=== PATIENT | male | born 1955 | race Caucasian/White ===

== ENCOUNTER 2024-06-08 19:59 | Emergency (ER) | payer OTHER, SELFPAY ==
[2024-06-08 20:02] VITALS: BP 145/68
[2024-06-08 22:55] VITALS: BMI 30.4
[2024-06-08 23:00] VITALS: BP 130/73
[2024-06-08] MEDS: DUONEB 3 ML INH (23:09)
[2024-06-08 23:15] LABS: % Basophils 0.4 % (0-2); % Eosinophils 1.1 % (0-6); % Immature Granulocytes 0.7 % (0-0.5); % Lymphocytes 24.2 % (20.5-51.1); % Monocytes 10.6 % (1.7-9.3); Absolute Eosinophils 0.1 10^3/uL (0-0.7); Absolute Immature Granulocytes 0.1 10^3/uL (0-0.05); Absolute Lymphocytes 2.2 10^3/uL (1.2-3.4); Absolute Neutrophils 5.8 10^3/uL (1.4-6.5); Hematocrit 45.8 % (39.0-52.0); Hemoglobin 15.3 g/dL (13.0-18.0); Mean Corp Hgb Conc. 33.4 g/dL (33.0-37.0); Mean Corpuscular Hgb 28.2 pg (27.0-31.0); Mean Corpuscular Volume 84.3 fL (80.0-94.0); Mean Platelet Volume 12.1 fL (7.4-10.4); Nucleated Red Blood Cells % 0 % (-); Platelet Count 270 10^3/uL (130-400); Red Blood Cell Count 5.43 10^6/uL (4.70-6.10); Red Cell Dist. Width 13.2 % (11.5-14.5); White Blood Cell Count 9.2 10^3/uL (4.8-10.8)
--- NOTE | 2024-06-08 23:21 | ED.GENMED ---
History of Present Illness
General
Chief Complaint: Cough
Source: patient and spouse
Exam Limitations: none
Time Seen by Provider: 06/08/24 22:14
Nursing documentation reviewed up to this point in time: agreed with except (Patient complains of cough for the past 3 to 4 weeks, not months)
History of Present Illness
History of Present Illness:
This is a 69-year-old gentleman who has remote history of DVT right lower extremity 7 years ago, has been maintained on Xarelto since that time, has been compliant with daily dosing. He has history of BPH, hyperlipidemia, factor V Leyden deficiency.
He presents with 3 to 4-week history of cough, URI with fever with Tmax of 1 1.2 �F. Initially evaluated by his PCP 3 weeks ago, initially treated with a cough suppressant without relief, returned to his PCP and was initially prescribed amoxicillin
and with no improvement after near completion of amoxicillin he was placed on a 5-day course of Levaquin 750 mg daily for which she has completed 4 of 5 days.
He states COVID and flu testing have been negative. An outpatient chest x-ray 3 days ago was negative.
Cough has been productive of phlegm, phlegm production has resolved, fever improving but has not completely resolved.
He is concerned with continued hacking cough with anterior substernal chest pain with coughing as well as back pain with cough. He is also concerned with an ache and sense of swelling right lower extremity over the past few days.
He has had no dizziness nor lightheadedness, no palpitations. He has has had some shortness of breath with coughing but denies dyspnea on exertion.
No close contacts with similar symptoms, no recent travel. No history of similar episode in the past. No history of lung disease/asthma/CHF.
Past History
Past History
ED Past Medical History: Hypercholesterolemia, Other (DVT right lower extremity 7 years ago-chronically maintained on Xarelto) and Other (Liver disease, factor V Leiden, kidney stones; BPH)
ED Past Surgical History: Appendectomy and Orthopedic (Bilateral total knee replacements most recently left knee replacement January 2024; bilateral rotator cuff repair)
Social History
Tobacco: Non-smoker
Alcohol: None
Personal:
Living: with family
Employment: Retired
Family History
Family History: Other (Noncontributory)
Phy Exam
Physical Exam
Physical Exam:
GENERAL: 69-year-old gentleman appears his stated age, awake and alert, pleasant, appears in no acute distress. Intermittent dry hacking cough is noted. Afebrile. is accompanying.
EYE: anicteric
NECK: Supple, nontender, no meningismus, no significant adenopathy. No JVD.
ENT: posterior pharynx is clear, oral mucosa is moist. TM clear b/l, nares patent.
CARDIAC: Regular rate and rhythm. no murmur.
LUNGS: Clear breath sounds bilaterally, no acute respiratory distress, no wheezes/rales/rhonchi
ABDOMEN: Soft, nondistended, without focal tenderness, no r/g, no cvat. normoactive BS.
NEUROLOGICAL: Alert and oriented x3, no focal neuro deficits. Gait is steady.
SKIN: Warm and dry, normal color, skin intact. No rash.
MUSCULOSKELETAL: Knee-high compression stockings in place. No C/C/E. peripheral pulses are full and equal b/l. No palpable tenderness. No appreciable edema bilateral lower extremities. No calf tenderness. No palpable cords. Negative Homans'
sign.
PSYCH: Normal and appropriate interaction.
Course
Orders/Labs/Results
Orders:
Orders
06/08/24 20:05
EKG [Electrocardiogram (*1)] Urgent
Reason for Study: Shortness of Breath
EKG- Treatment ONCE
06/08/24 22:51
Ipratropium/Albuterol Sulfate [Duoneb] 3 ml INH R NOW STA
06/08/24 23:05
Complete Blood Count/With Diff Urgent
Comprehensive Metabolic Panel Urgent
DDimer [D-Dimer] Urgent
NT-proBNP Urgent
Troponin I Urgent
06/08/24 23:29
CT Chest PE Study Urgent
Comment:
Reason For Exam: cough x 3 weeks, CP, elevated ddimer
06/09/24 01:05
Dexamethasone Sod Phosphate [Decadron] 10 mg IV NOW STA
Guaifenesin/Codeine Solution [Robitussin AC] 10 ml PO NOW STA
Ketorolac [Toradol] 15 mg IV NOW STA
Abnormal Lab Results
06/08/24
23:05
MPV 12.1 H fL
(7.4-10.4)
Abs Immat Gran (auto) 0.1 H 10^3/uL
(0-0.05)
Absolute Monos (auto) 1.0 H 10^3/uL
(0.1-0.6)
Immature Gran % 0.7 H %
(0-0.5)
Monocytes % 10.6 H %
(1.7-9.3)
D-Dimer 1.22 H ug/mlFEU
(0.00-0.50)
Glucose 105 H mg/dl
(70-99)
Calcium 10.7 H mg/dl
(8.4-10.2)
AST 70 H U/L
(17-59)
ALT 97 H U/L
(0-50)
Alkaline Phosphatase 174 H U/L
(38-126)
Total Protein 5.9 L g/dl
(6.3-8.2)
Albumin 3.3 L g/dl
(3.5-5.0)
06/08/24 23:05
06/08/24 23:05
Vital Signs
Initial and Last Documented VS:
Initial Vital Signs
Temp Pulse Resp BP Pulse Ox
98.5 F 69 16 145/68 98
06/08/24 20:02 06/08/24 20:02 06/08/24 20:02 06/08/24 20:02 06/08/24 20:02
Last Documented Vital Signs
Temp Pulse Resp BP Pulse Ox
98.5 F 91 18 121/87 98
06/08/24 20:02 06/09/24 00:12 06/09/24 00:12 06/09/24 00:12 06/09/24 00:12
MDM/Problems Addressed
Differential Diagnosis Includes:
Concern for acute bronchitis with reactive airway disease, CHF, concern for occult pneumonia, other consideration is PE however reassuring that patient has been compliant with Xarelto.
Will check labs including BNP, D-dimer.
EKG shows normal sinus rhythm with unifocal PVCs, otherwise unremarkable.
If D-dimer elevated will plan for CT of the chest/PE study
Will trial DuoNeb nebulizer for cough.
Chronic conditions affecting care: Other (Factor V Leyden deficiency)
*Radiology
Radiology exam reviewed: radiology read reviewed
*Pulse Oximetry
Patient hypoxic: no
*Critical Care Note
Total Time (30-74mins, 75-104mins- exclusive of procedures): Not Applicable
Update Note
Update Note:
01:10
Patient reports improvement in cough after nebulizer treatment. He continues with moderate back pain with coughing.
Labs reveal unremarkable CBC. Chemistries show mildly elevated LFTs. Patient notes a history of elevated LFTs, history of liver fibrosis without cirrhosis.
Troponin is negative. BNP is normal.
D-dimer mildly elevated thus CT of the chest/PE study obtained which is unremarkable no evidence of PE nor aortic pathology. No pneumonia nor CHF. Patent airways. There is note of moderate gastric wall/fold thickening along the posterior
wall�consideration for gastritis. Patient denies abdominal pain but is chronically maintained on omeprazole 20 mg daily.
I suspect a viral URI/bronchitis with wheezing/reactive airway disease.
Back pain with coughing appears musculoskeletal in nature.
Will treat with a course of prednisone, albuterol inhaler, Robitussin with codeine. Due to concern for gastritis on CAT scan will increase dose of omeprazole to 40 mg daily.
Recommend he finish his course of Levaquin�has 1 more dose for today June 1.
Prompt follow-up with PCP for recheck.
ED Attending Note
-
Portions of this chart may have been created with voice recognition software.� Occasional wrong word or��sound alike� substitutions may have occurred due to the inherent limitations of voice recognition software.
Discharge Plan
Departure
Patient Disposition: Home (Routine Discharge)
Date of Disposition: 06/09/24
Time of Disposition: 01:09
Patient with high blood pressure during this ER visit?: No
Condition: Good
Discharge Problem:
Acute asthmatic bronchitis
Instructions: Acute Bronchitis, Adult (DC), How to use a metered dose inhaler in adults - ED discharge instructions
Prescriptions:
New
prednisone 20 mg tablet
40 mg PO DAILY Qty: 10 0RF
omeprazole 40 mg capsule,delayed release(DR/EC)
40 mg PO DAILY Qty: 30 1RF
codeine-guaifenesin [Guaifenesin AC] 10-100 mg/5 mL liquid
10 ml PO QIDPRN PRN (Reason: Cough) Qty: 200 0RF
albuterol sulfate 90 mcg/actuation aerosol powdr breath activated
2 inh inhalation QIDPRN PRN (Reason: shortness of breath or cough) Qty: 1 0RF
Discontinued
diclofenac potassium 50 mg tablet
50 mg PO BID PRN (Reason: pain) Qty: 14 0RF
ondansetron 4 mg Tablet,Disintegrating
4 mg PO BIDPRN PRN (Reason: nausea/vomiting) Qty: 10 0RF
oxycodone 5 mg tablet
5 mg PO Q8H PRN (Reason: pain) Qty: 14 0RF
Referrals:
UNKNOWN - PT NOT,INTERVIEWE [Family Provider] -
Activity Restrictions/Additional Instructions:
Finish that last dose of Levaquin.
Stay well-hydrated on a daily basis.
Use humidifier or vaporizer at nighttime.
Follow-up with your primary care physician for recheck.
Interventions
Interventions:
*Risk Screen - Suicide Last Done: 06/08/24 20:02
*General Assessment Last Done: 06/08/24 22:56
*Neglect/Abuse Screening Last Done: 06/08/24 20:02
*ED- Fall Risk Assessment Last Done: 06/08/24 22:56
*ED COVID-19 Vaccine History Last Done: 06/08/24 22:56
ED- Neurological Assessment Last Done: 06/08/24 23:01
ED- Pulmonary Assessment Last Done: 06/08/24 23:01
ED-Skin Assessment Last Done: 06/08/24 23:01
Discharge Date and Time
Print Language: SWAZI
[2024-06-08 23:22] LABS: D-Dimer 1.22 ug/mlFEU (0.00-0.50)
[2024-06-08 23:39] LABS: NT-proBNP 244 pg/ml; Troponin I < 0.012 ng/ml
[2024-06-08 23:45] LABS: ALT (SGPT) 97 U/L (0-50); AST (SGOT) 70 U/L (17-59); Albumin 3.3 g/dl (3.5-5.0); Alkaline Phosphatase 174 U/L (38-126); Blood Urea Nitrogen 12 mg/dl (9-20); Calcium 10.7 mg/dl (8.4-10.2); Carbon Dioxide 27 mmol/L (22-30); Chloride 105 mmol/L (98-107); Estimated Creatinine Clearance 90 ml/min; Glucose 105 mg/dl (70-99); Potassium 4.6 mmol/L (3.5-5.1); Sodium 139 mmol/L (135-145); Total Bilirubin 0.9 mg/dl (0.2-1.3); Total Protein 5.9 g/dl (6.3-8.2); eGFR > 60.00
[2024-06-09 00:12] VITALS: BP 121/87
[2024-06-09] MEDS: TORADOL 15 MG IV (01:13)
[2024-06-09] MEDS: DECADRON 10 MG IV (01:14)
[2024-06-09] MEDS: ROBITUSSIN AC 10 ML PO (01:15)
[2024-06-09 01:23] VITALS: BP 132/82
== END 2024-06-09 01:37 | disposition home or self-care (01) ==
LOC: EMR 19:59
PROVIDERS: EMERGENCY PHYSICIAN Emergency Medicine
DX: J45.909 Unspecified asthma, uncomplicated (principal); N40.0 Benign prostatic hyperplasia without lower urinary tract symptoms; E78.00 Pure hypercholesterolemia, unspecified; D68.51 Activated protein C resistance; Z79.01 Long term (current) use of anticoagulants; Z86.718 Personal history of other venous thrombosis and embolism; Z87.442 Personal history of urinary calculi; Z90.49 Acquired absence of other specified parts of digestive tract; Z96.653 Presence of artificial knee joint, bilateral
CPT/HCPCS: 99284; 94640; 96374; 96375; 71275; 80053; 83880; 84484; 85025; 85379; 93005; Q9967

== ENCOUNTER 2025-01-14 20:02 | Inpatient (IN) | payer OTHER, SELFPAY ==
[2025-01-14] VITALS (8 sets, daily range): BP systolic 117–135; BP diastolic 50–86; BMI 30.2
--- NOTE | 2025-01-14 14:50 | ED.GENMED ---
History of Present Illness
General
Chief Complaint: Cold/Flu/URI Symptoms
Time Seen by Provider: 01/14/25 14:10
History of Present Illness
History of Present Illness:
69-year-old male with history of GERD and DVT on Xarelto per for fever and generally feeling unwell. Patient reports fever since yesterday. Notes that he felt unwell about a week ago with fever, however resolved. Also at the time was having some
right calf pain. Since last night has had fever and cough and his right lower extremity is now erythematous. Reports compliance with his medications. Denies numbness or tingling. Denies vomiting or diarrhea. Denies known sick contacts. Denies
abdominal pain. Son at bedside felt the patient was slightly more confused today. Patient denies additional acute medical complaints
Past History
Past History
ED Past Medical History: Hypercholesterolemia, Other (DVT right lower extremity 7 years ago-chronically maintained on Xarelto) and Other (Liver disease, factor V Leiden, kidney stones; BPH)
ED Past Surgical History: Appendectomy and Orthopedic (Bilateral total knee replacements most recently left knee replacement January 2024; bilateral rotator cuff repair)
Social History
Tobacco: Non-smoker
Alcohol: None
Personal:
Living: with family
Employment: Retired
Family History
Family History: Other (Noncontributory)
Phy Exam
Physical Exam
Physical Exam:
General: Well-appearing, no clinical signs of dehydration, nontoxic and in no acute distress
HEENT: protecting airway
Neck: appears supple
CV: Normal heart rate, regular rhythm
Resp: No accessory muscle use, no increased work of breathing, lungs clear to auscultation bilaterally
Abd: Soft and non-distended, no tenderness to palpation
Extremities: No deformities, mild swelling to the right lower extremity versus left lower extremity distal to the knee. Erythema. Pulses and sensation intact
Neuro: alert, no focal neurologic deficit
: deferred
Rectal: deferred
Psych: Normal affect
Skin: Intact
Sepsis
Sepsis Screening
Sepsis Assessment: Sepsis
Sepsis Screen
Sepsis Screen: Sepsis
Date: 01/14/25
Time: 23:30
Course
Orders/Labs/Results
Orders:
Orders
01/14/25 Breakfast
Cholesterol Lowering
At Your Request: Full Participation
01/14/25 14:36
0.9% Sodium Chloride 1000 ml [Nss] 1,000 ml IV BOLUS
US Periph Venous LOWER Ext RT Urgent
Comment:
Reason For Exam: hx dvt, redness, fever
01/14/25 14:44
COVID-19 Antigen Urgent
Source: Nasal Swab
Complete Blood Count/With Diff Urgent
Comprehensive Metabolic Panel Urgent
Lactic Acid Urgent
Influenza A+B Rapid Molecular Urgent
JO ANN Source: Nasal Swab
Specimen Description:
01/14/25 14:57
Urinalysis Reflex To Culture Urgent
Date Specimen was Collected: 01/14/25
Time Specimen was Collected: 14:56
Urine Microscopic Reflex Cult Urgent
01/14/25 15:34
CR Chest - 2 Views Urgent
Comment:
Reason For Exam: cough
01/14/25 19:10
Vancomycin [Vancocin] 2,000 mg 0.9% Sodium Chloride 500 ml [Nss] 500 ml IV NOW
01/14/25 19:30
0.9% Sodium Chloride 1000 ml [Nss] 1,000 ml IV BOLUS
Acetaminophen [Tylenol] 1,000 mg PO NOW STA
01/14/25 19:38
Admit/Transfer Patient As Directed
Co-Sign Provider:
Level of Care: Inpatient admission
Assign to:: Medical/Surgical
Physician / Group: Jacklyn
Diagnosis: Sepsis, Cellulitis
Reason for Hospitalization: IV abx
Expected length of stay greater than two midnights?: Yes
ELOS- Estimated Length of Stay in days: 3
I certify the patient meets the requirements for IP care: Yes
PRN Pain Medication Management As Directed
May give lesser potent ordered pain med per pt: Yes
preference::
Protocol:: Medication orders for pain may be administered in a
manner that supports deferring to patient preference
when the pt is:
- Requesting an ordered lesser potent pain medication.
Least to most potent pain medications are defined
as: acetaminophen < NSAID < tramadol < opioids
(morphine, oxycodone, hydromorphone).
- Requesting a lesser dose of the same medication IF
ORDERED.
- Requesting a less intrusive route of administration
if both routes are prescribed by the provider (PO <
IV).
01/14/25 19:41
Code Status As Directed
Resuscitation Status: Full Code
01/14/25 20:28
0.9% Sodium Chloride 1000 ml [Nss] 1,000 ml IV 100 mls/hr
Acetaminophen [Tylenol] 650 mg PO Q4HPRN PRN
CeFAZolin 2 GRAM [Ancef] 2 grams in 10 ml IV Q8H
Miconazole Nitrate [Desenex/Mitrazol/Zeasorb] See Dose Instructions TOPICAL BID
Tamsulosin [Flomax] 0.4 mg PO BID
01/14/25 20:28
Activity As Directed
Activity Level: Out of Bed-Early Mobility
With Assistance
Vital Signs As Directed
Frequency: q4h
01/14/25 20:44
MRSA Screen Routine
JO ANN Source: Nose
Specimen Description:
01/14/25 21:11
Blood Culture Q30M
JO ANN Source: Blood/Venous
Specimen Description:
01/14/25 21:51
Blood Culture Q30M
JO ANN Source: Blood/Venous
Specimen Description:
01/15/25 06:00
Complete Blood Count/No Diff IN AM
Comprehensive Metabolic Panel IN AM
01/15/25 08:00
Pantoprazole [Protonix] 40 mg PO DAILY
Rivaroxaban [Xarelto] 20 mg PO DAILY
01/16/25 08:00
Ergocalciferol [Drisdol (Vitamin D2)] DOSE units PO MO
Abnormal Lab Results
01/14/25 01/14/25
14:44 14:57
WBC 22.6 H 10^3/uL
(4.8-10.8)
MPV 11.0 H fL
(7.4-10.4)
Abs Immat Gran (auto) 0.2 H 10^3/uL
(0-0.05)
Absolute Neuts (auto) 18.9 H 10^3/uL
(1.4-6.5)
Absolute Monos (auto) 1.2 H 10^3/uL
(0.1-0.6)
Absolute Eos (auto) 0.8 H 10^3/uL
(0-0.7)
Immature Gran % 0.7 H %
(0-0.5)
Neutrophils % 83.9 H %
(42.2-75.2)
Lymphocytes % 6.2 L %
(20.5-51.1)
Sodium 132 L mmol/L
(135-145)
Total Bilirubin 2.1 H mg/dl
(0.2-1.3)
Urine Urobilinogen 2+ A
(Neg - 1+)
Urine Bacteria (Reflex) Few A
(Negative)
Urine Albumin (Reflex) 1+ A
(Neg - Trace)
01/14/25 14:44
01/14/25 14:44
Vital Signs
Initial and Last Documented VS:
Initial Vital Signs
Temp Pulse Resp BP Pulse Ox
99.3 F 78 22 120/72 98
01/14/25 13:45 01/14/25 13:45 01/14/25 13:45 01/14/25 13:45 01/14/25 13:45
Last Documented Vital Signs
Temp Pulse Resp BP Pulse Ox
99.4 F 106 16 126/76 99
01/14/25 20:38 01/14/25 20:38 01/14/25 20:38 01/14/25 20:38 01/14/25 20:38
MDM/Problems Addressed
MDM/Problems Addressed:
69-year-old male with history of GERD and DVT on Xarelto presenting for fever, cough, right lower extremity redness. Vital signs on arrival are significant for low-grade temperature.
On exam, patient resting comfortably, no acute distress. Patient appears somewhat flushed, however nontoxic. Notes that he took Tylenol prior to arrival. Currently afebrile. However, significant erythema to the right lower extremity with edema
today versus cellulitis. Suspected to be more likely cellulitis with fever and infectious symptoms. Viral syndrome such as flu or COVID is also consideration. Will send swabs. Will also send laboratory analysis. Will start patient on IV fluids.
Will also obtain chest x-ray imaging in the setting of cough. Will continue to closely monitor.
17:00 - Labs do show elevated white blood cell count. Chest x-ray without acute infiltrate. COVID and flu negative. Normal lactic acid and blood pressure remained stable without concern for severe sepsis or septic shock. Pending ultrasound of
the lower extremity
18:55 - Ultrasound without DVT. In the setting of fever, significant erythema, concern for cellulitis and developing sepsis. For this reason we will start IV antibiotics plan for admission
*Pulse Oximetry
SaO2: 98
Oxygen Mode of Delivery: Room air
Patient hypoxic: no
*Critical Care Note
Total Time (30-74mins, 75-104mins- exclusive of procedures): Not Applicable
ED Attending Note
-
Portions of this chart may have been created with voice recognition software.� Occasional wrong word or��sound alike� substitutions may have occurred due to the inherent limitations of voice recognition software.
Discharge Plan
Departure
Patient Disposition: Admit
Date of Disposition: 01/14/25
Time of Disposition: 19:24
Presentation/result/management discussed w/ accepting MD/DO: Hospitalist
Patient with high blood pressure during this ER visit?: No
Condition: Fair
Discharge Problem:
Cellulitis of right leg, Sepsis
Interventions
Interventions:
*Risk Screen - Suicide Last Done: 01/14/25 13:45
*General Assessment Last Done: 01/14/25 13:45
*Neglect/Abuse Screening Last Done: 01/14/25 13:45
*ED COVID-19 Vaccine History Last Done: 01/14/25 16:16
*ED Influenza Vaccine History Last Done: 01/14/25 16:16
[facility] Fall Risk Assessment Tool Last Done: 01/14/25 16:16
*Nursing Disposition Last Done: 01/14/25 20:29
ED- Pulmonary Assessment Last Done: 01/14/25 16:16
Discharge Date and Time
Discharge Date/Time: 01/14/25 20:29
[2025-01-14] MEDS: NSS 1000 IV ×3 (14:55→21:30)
[2025-01-14 15:11] LABS: Urine Character Clear (Clear)
[2025-01-14 15:12] LABS: Hematocrit 47.9 % (39.0-52.0); Hemoglobin 16.5 g/dL (13.0-18.0); Mean Corp Hgb Conc. 34.4 g/dL (33.0-37.0); Mean Corpuscular Volume 83.7 fL (80.0-94.0); Platelet Count 177 10^3/uL (130-400); Red Cell Dist. Width 14.1 % (11.5-14.5)
[2025-01-14 15:22] LABS: COVID-19 Antigen Negative (Negative)
[2025-01-14 15:28] LABS: ALT (SGPT) 34 U/L (0-50); AST (SGOT) 36 U/L (17-59); Albumin 3.8 g/dl (3.5-5.0); Alkaline Phosphatase 90 U/L (38-126); Blood Urea Nitrogen 12 mg/dl (9-20); Calcium 9.6 mg/dl (8.4-10.2); Carbon Dioxide 22 mmol/L (22-30); Chloride 103 mmol/L (98-107); Glucose 97 mg/dl (70-99); Potassium 3.9 mmol/L (3.5-5.1); Sodium 132 mmol/L (135-145); Total Protein 6.4 g/dl (6.3-8.2); eGFR > 60.00
[2025-01-14 15:39] LABS: Nucleated Red Blood Cells % 0 % (-)
[2025-01-14 16:02] LABS: Urine Red Blood Cell 0-2 /HPF (0-2); Urine Squamous Cell 0-2 /LPF (Few); Urine White Cell 0-2 /HPF (0-5)
[2025-01-14] MEDS: VANCOCIN 540 MG IV (19:23)
--- NOTE | 2025-01-14 19:23 | HPS.HSE ---
Family Physician
-
Family Physician: Kai Waldron
Chief Complaint
-
Fever, RLE Swelling and Redness
History of Present Illness
Patients is a 69 y/o male past medical history of DVT due to Factor 5 Leiden on Xarelto, hyperlipidemia and BPH who presents with fever and increased redness/swelling of the right leg. Patient reports increasing swelling of the right leg over the
past few days. Last night he developed a fever of 104F associated with sweats and chills. He notes the redness in the leg has continue to worsen prompting him to come to the emergency department for evaluation. Patient reports his prior DVT was in
the right leg, but he denies any prior episodes of celluitis.
Medical History
Past Medical History
Past Medical History: Reports Other
Additional Past Medical History:
DVT / Factor 5 Leiden
Hyperlipidemia
BPH
Nephrolithiasis
Past Surgical History: Reports Other
Additional Past Surgical History:
Bilateral Total Knee Replacements
Bilateral Rotator Cuff
Appendectomy
Social History
Tobacco: Non-smoker
Family History
Family History: Not pertinent
Allergies / Home Medications
Allergies reflects when Allergies were last updated in [employer].
Home Medications with original date entered in [employer]
Allergy/Medication List:
Allergies
Allergy/AdvReac Type Severity Reaction Status Date / Time
No Known Allergies Allergy Verified 01/14/25 13:45
Home Medications
acetaminophen 325 mg tablet (Tylenol) 650 mg PO Q6HPRN PRN mild pain 01/14/25
ergocalciferol (vitamin D2) 1,250 mcg (50,000 unit) capsule 1,250 mcg PO MO Supplement 01/14/25
evolocumab 140 mg/mL subcutaneous syringe (Repatha Syringe) 140 mg SC Q2W High Cholesterol 01/14/25
furosemide 40 mg tablet (Lasix) 40 mg PO DAILY Fluid Retention/Swelling 01/14/25
omeprazole 20 mg tablet,delayed release 20 mg PO DAILY Gastrointestinal Issue 01/14/25
rivaroxaban 20 mg tablet (Xarelto) 20 mg PO DAILY Blood Clot Prevention/Tx 01/14/25
tamsulosin 0.4 mg capsule 0.4 mg PO BID Urinary Issue 01/14/25
Review of Systems
-
A 12 point ROS was completed and negative except as noted: Yes
Constitutional: Reports Fever and Chills
Respiratory: Reports Cough
Cardiac: Denies Chest Pain or Palpitations
Abdomen/GI: Denies Abdominal Pain, Nausea, Vomiting or Diarrhea
Physical Exam
Vital Signs
Vital Signs
Temp Pulse Resp BP Pulse Ox
100.4 F H 98 16 135/86 97
01/14/25 19:21 01/14/25 19:21 01/14/25 19:21 01/14/25 19:21 01/14/25 19:21
Physical Exam
General: Comfortable and Conversant
HEENT: Anicteric and Moist mucous membranes
Respiratory: Clear and Non Labored Respirations
Cardiac: S1/S2 and Regular Rhythm
GI: Soft and Non Tender
Rectal: Deferred by Provider
Musculoskeletal: No Clubbing, No Cyanosis and Edema, Right Lower Extremity
Skin: Other (Significant erythema of RLE extremity extending from ankle to just below the knee; notable areas of interdigit maceration particularly between right 3rd/4th toes)
Neuro: Awake, Alert, Oriented and Nonfocal/grossly intact
Psych: Calm
Laboratory Results
-
01/14/25 14:44
01/14/25 14:44
Laboratory Results
Lactic Acid 1.1 mmol/L (0.7-2.0) 01/14/25 14:44
Total Bilirubin 2.1 mg/dl (0.2-1.3) H 01/14/25 14:44
AST 36 U/L (17-59) 01/14/25 14:44
ALT 34 U/L (0-50) 01/14/25 14:44
Alkaline Phosphatase 90 U/L (38-126) 01/14/25 14:44
Peripheral Vascular Ultrasound:
No evidence of deep venous thrombosis in the visualized right lower extremity as described above.
Data Reviewed
-
Lab Data: Labs Reviewed by me
Impression/Plan
-
Sepsis secondary to Right Lower Extremity Cellulitis with Hyperbilirubinemia (Bilirubin 2.1)
-Patient with systemic signs of infection with high fever, sweats/chills /rigors - Check blood cultures
-Start cefazolin
-Add miconazole powder for interdigit maceration
Hx DVT / Factor 5 Leiden
-Continue Xarelto
-Patient reports chronic RLE edema for which he takes Lasix as home - Will home for now due to sepsis
BPH
-Continue Flomax
Hyperlipidemia
-Patient maintained on Repatha as outpatient
Code Status: Full Code
--- NOTE | 2025-01-14 20:00 | W.PN.UPDATE ---
Update Note
Progress Note Update
Patient seen in conjunction with physician assistant teacher, I agree with her findings and physical. Medical weight assessment and plan unless otherwise stated.
Briefly, he states he is 69-year-old with past medical history significant for lower extremity DVT on anticoagulation with Xarelto, history of factor V Leiden, residual right lower extremity edema presenting to the emergency department with about 2
days of redness and swelling in the right lower extremity. X-ray with some tenderness. However over the last 24 hours patient has been having fevers and chills at home. Per spouse report increasing redness and spreading of the redness from the
ankle to just below the knee. Spouse indicated possibility of an insect bite. Patient is not diabetic. He has no recent antibiotic use. He has no recent hospitalization.
On arrival in the emergency department he had taken Tylenol at home, his temperature remains elevated at 100.4, blood pressure 135/86, pulse was 91 and oxygen saturation of 97%. He had an ultrasound of the lower extremity which was negative for a
DVT. His chest x-ray was clear. COVID test was negative. He has a white count of 22.6 otherwise hemogram platelets were normal. Electrolytes BUN/creatinine were in the normal range. LFTs notable for bilirubin of 2.1, UA was unremarkable.
Lactic acid was normal
Impression
69-year-old with history of DVT and factor V Leiden presenting to the emergency department with cellulitis to the right lower extremity no apparent lymphangitic spread but does have systemic findings with fever and leukocytosis. Plan
Sepsis with elevated bilirubin secondary to cellulitis
- Admit to [facility]
- Patient without risk factors for MRSA or Pseudomonas or resistant bug,
�Obtain blood cultures
� MRSA swab
�Vancomycin in ED, will continue with cefazolin for now, will broaden if persistently febrile or shows decompensation
�Serial examinations
History of DVT
� Continue rivaroxaban
BPH
� Continue tamsulosin
DVT prophylaxis�on rivaroxaban
CODE STATUS�full code
[2025-01-14] MEDS: TYLENOL 1000 MG PO (20:11)
--- NOTE | 2025-01-14 20:28 | PTCARENOTE ---
Pt received from ED to [id number]. Pt oriented to room and call avalos.
[2025-01-14] MEDS: DESENEX/MITRAZOL/ZEASORB 1 APPLIC TOPICAL (21:10)
[2025-01-14] MEDS: FLOMAX PO (21:14)
--- NOTE | 2025-01-14 21:18 | PTCARENOTE ---
Pt with orders for BC x 2 in admit orders. Vancomycin infusion already started in ED. House DAYCARE TEACHER made aware. FEATHER CUTTING MACHINE FEEDER states she will ask ordering PA if BC's still to be drawn. Per FEATHER CUTTING MACHINE FEEDER, BC's should be drawn. 1st set drawn and sent. 2nd set to be drawn 30
minutes later.
[2025-01-14] MEDS: ANCEF 10 IV (21:57)
[2025-01-15 02:54] VITALS: BP 138/73
[2025-01-15] MEDS: ANCEF 10 IV ×3 (05:00→19:39)
[2025-01-15 07:00] VITALS: BP 138/72
[2025-01-15 07:32] LABS: Hematocrit 46.7 % (39.0-52.0); Hemoglobin 15.9 g/dL (13.0-18.0); Mean Corp Hgb Conc. 34.0 g/dL (33.0-37.0); Mean Corpuscular Volume 84.9 fL (80.0-94.0); Platelet Count 149 10^3/uL (130-400); Red Cell Dist. Width 14.5 % (11.5-14.5)
[2025-01-15 07:55] LABS: ALT (SGPT) 27 U/L (0-50); AST (SGOT) 23 U/L (17-59); Albumin 3.1 g/dl (3.5-5.0); Alkaline Phosphatase 91 U/L (38-126); Blood Urea Nitrogen 10 mg/dl (9-20); Calcium 9.2 mg/dl (8.4-10.2); Carbon Dioxide 22 mmol/L (22-30); Chloride 107 mmol/L (98-107); Estimated Creatinine Clearance 98 ml/min; Glucose 77 mg/dl (70-99); Potassium 3.9 mmol/L (3.5-5.1); Sodium 134 mmol/L (135-145); Total Protein 5.5 g/dl (6.3-8.2); eGFR > 60.00
[2025-01-15] MEDS: XARELTO 20 MG PO (08:11)
[2025-01-15] MEDS: FLOMAX 0.4 MG PO ×2 (08:11→19:35)
[2025-01-15] MEDS: PROTONIX 40 MG PO (08:11)
[2025-01-15] MEDS: DESENEX/MITRAZOL/ZEASORB 1 APPLIC TOPICAL ×2 (08:12→19:38)
--- NOTE | 2025-01-15 09:45 | CM ---
Patient seen at bedside on . Patient stated that he lives with his girlfriend in a one story home. Patient stated that he has no DME. Patient PCP is Dr. Adamson and [facility] uses [facility] [place]. patient stated that he does not drive but is
independent of adl's. Patient plan is for discharge home with no needs. CM will continue to follow for discharge planning needs.
Plan; home with VN vs home with no needs; pending medical treatment plan
--- NOTE | 2025-01-15 09:50 | CM ---
Patient seen at bedside on . Patient states that he lives with his in a 2 story home. patient has no DME. Patient PCP is Dr. Crane and [facility] uses [facility] [place]. Patient is independent of ADL's and stated that he has had [facility] previously and would accept if needed. CM will continue to follow for discharge planning needs.
Plan; home with VN vs home with no needs pending medical treatment plan
[2025-01-15] MEDS: ULTRAM 50 MG PO (10:19)
--- NOTE | 2025-01-15 11:00 | W.PN.HOSP.TC ---
Today's Communication/Plan
-
Assessment / Plan
Assessment / Plan
General: No Apparent Distress, Comfortable and Conversant
HEENT: NormoCephalic, Moist mucous membranes, Atraumatic
Respiratory: Clear and Non Labored Respirations
Cardiac: S1/S2 and Regular Rhythm; No Rub or Gallop
GI: Soft, Non Tender, Non Distended and Normal Bowel Sounds
Musculoskeletal: No Edema, no deformity
Skin: Warm and dry, significant right lower extremity erythema originating from the ankle and spreading proximally with streaking left medial thigh to the groin, no drainage or open wounds
: NO Cheung
Neuro: Awake, Alert, Nonfocal/grossly intact
Psych: Calm and Intact Judgment/Insight
Mr. Coats is a 69-year-old male with a medical history of right lower extremity DVT due to factor V Leiden (on Xarelto), hyperlipidemia, and prostate enlargement who presented with painful redness and swelling in his right ankle spreading
proximally. This has been progressing over the past few days prior to arrival. He developed a fever at home and has been unable to bear weight on his right foot due to pain. He has been started on antibiotics and admitted for further evaluation
and management of cellulitis.
Sepsis secondary to right lower extremity cellulitis:
- Likely streptococcal considering streaking, no purulence or drainage
- Erythema marked at time of admission (01/14), appears to have expanded since admission with streaking up medial thigh to right groin which has now also been marked (01/15)
- Continuing antibiotics with Ancef for now, follow-up cultures
- Appreciate guidance from ID
- Pain control as needed
- Leukocytosis appears to be improving, very mild fever yesterday evening of 100.4 �F, will monitor
- No evidence of DVT on ultrasound
- Patient reports taking Lasix daily for right lower extremity swelling, holding for now
Hyperbilirubinemia:
- T. bili 2.1 on initial labs improved to 1.7 today
- Alk phos and transaminases within normal limits
- Will monitor
Factor V Leiden mutation:
- History of right lower extremity DVT
- Continue home Xarelto
- Right lower extremity Doppler this admission shows no evidence of DVT
DVT prophylaxis: Xarelto
CODE STATUS: Full code
Anticipated Discharge: > 48 hours
Subjective/Interval History
-
Date of Service: January 15, 2025
Patient was seen and examined at bedside this morning. Reports ongoing right lower extremity pain. Now with streaking up the medial aspect of his leg to his right groin.
Objective Data
-
Labs:
Laboratory Results
01/15/25
06:47
WBC 17.4 H
Hgb 15.9
Hct 46.7
Plt Count 149
Sodium 134 L
Potassium 3.9
Chloride 107
Carbon Dioxide 22
BUN 10
Creatinine 0.8
Glucose 77
Calcium 9.2
Total Bilirubin 1.7 H
AST 23
ALT 27
Alkaline Phosphatase 91
Vital Signs:
Vital Signs
Temp Pulse Resp BP Pulse Ox
98 F 52 17 138/72 97
01/15/25 07:00 01/15/25 07:00 01/15/25 07:00 01/15/25 07:00 01/15/25 08:00
I&O
01/14/25 01/15/25 01/16/25
06:59 06:59 06:59
Intake Total 1520 / 1520
Balance 1520 / 1520
Review of Systems
-
History Source: Patient
All other systems: Reviewed and negative
Skin: Reports Rash (Right leg redness originating from the ankle and spreading proximally, painful)
Physical Exam
-
General: No Apparent Distress
[2025-01-15] MEDS: VENTOLIN NEBULES 2.5 MG INH (11:12)
[2025-01-15] MEDS: MORPHINE SULFATE 2 MG IV (11:37)
--- NOTE | 2025-01-15 14:00 | CON.ID ---
Consultation
-
Date/Time Consultation Requested: 01/15/25 9:05
Date/Time Consultation Performed: 01/15/25 14:00
Requesting Provider: Dr Tran
Performing Provider: Dr Yuan
Reason for Consultation: RLE cellulitis w streaking
Chief Complaint / Past History
Chief Complaint
fever RLE swelling and redness
History of Present Illness
Mr Coats is a 69 year old male with hisotry of DVT due to factor V Leiden on xarel, who presented here yesterday for increasing swelling over the right leg over several days progressing to erythema and fever to 104 with sweats and chills. No
history of cellulitis
Since arrival here Tmax is 100.4, bp overall stable, wbc initially 23 otday 17, hgb 15.9, plt 149, L shift was present on arrival, na 132, cr initially 1.0 today 0.8, t bili 1.7, ast 23, alt 27, alk phos 91, ua no pyuria, covid ag negative, 01/14 Rt
LE venous us: no DVT, 01/14 CXR: no acute CP process, blood cultures x2 in progress, MRSA screen in progress, influenza PCR negative, patient initially had a dose of vancomycin then was switched to cefazolin 2 gm IV q8 hours, ID is consulted for
assistance with management.
Past History
Additional Past Medical History:
DVT / Factor 5 Leiden
Hyperlipidemia
BPH
Nephrolithiasis
Additional Past Surgical History:
Bilateral Total Knee Replacements
Bilateral Rotator Cuff
Appendectomy
Allergy History:
No Known Allergies Allergy (Verified 01/14/25 13:45)
Medications Reviewed: Yes
Social History
Tobacco: Non-Smoker
Alcohol: None
Personal:
Family History
Family History: Not Pertinent
Review of Systems
Review of Systems
A 12 point ROS was completed and negative except as noted: Yes
Constitutional: Reports Fever and Chills
Respiratory: Reports Cough
Cardiac: Denies Chest Pain or Palpitations
Abdomen/GI: Denies Abdominal Pain, Nausea, Vomiting or Diarrhea
Vital Signs
Temp Pulse Resp BP Pulse Ox
99.3 F 56 18 138/72 97
01/15/25 11:23 01/15/25 11:15 01/15/25 11:15 01/15/25 07:00 01/15/25 11:15
Physical Exam
Physical Exam
Constitutional: No Acute Distress
Cardiovascular: Regular Rate and S1/S2; Negative Murmur or Rub
Pulmonary: Clear and Symmetric; Negative Wheezes, Rales or Rhonchi
Gastrointestinal: Soft, Non Tender, Non Distended and Normal Bowel Sounds
Skin: Warm and Dry; Negative Rash or Jaundice
Lab / Diagnostic Study Results
01/15/25 06:47
01/15/25 06:47
Abs Immat Gran (auto) 0.2 10^3/uL (0-0.05) H 01/14/25 14:44
Absolute Neuts (auto) 18.9 10^3/uL (1.4-6.5) H 01/14/25 14:44
Absolute Lymphs (auto) 1.4 10^3/uL (1.2-3.4) 01/14/25 14:44
Absolute Monos (auto) 1.2 10^3/uL (0.1-0.6) H 01/14/25 14:44
Absolute Basos (auto) 0.1 10^3/uL (0-0.2) 01/14/25 14:44
Immature Gran % 0.7 % (0-0.5) H 01/14/25 14:44
Neutrophils % 83.9 % (42.2-75.2) H 01/14/25 14:44
Lymphocytes % 6.2 % (20.5-51.1) L 01/14/25 14:44
Monocytes % 5.3 % (1.7-9.3) 01/14/25 14:44
Eosinophils % 3.6 % (0-6) 01/14/25 14:44
Basophils % 0.3 % (0-2) 01/14/25 14:44
Lactic Acid 1.1 mmol/L (0.7-2.0) 01/14/25 14:44
Ur Squamous Epith Cells 0-2 /LPF (Few) 01/14/25 14:57
Microbiology Results
Micro:
01/14/25 21:51 Blood Culture - Pending
Blood/Venous
01/14/25 21:11 Blood Culture - Pending
Blood/Venous
01/14/25 20:44 MRSA Screen - Pending
Nose
01/14/25 14:44 Influenza Types A & B (KE) - Final
Nasal Swab Negative for Influenza A & B, NAAT
Negative results must be combined with clinical observations
and patient history.
Nucleic Acid Amplification test (NAAT)performed on the
[employer] platform.
Assessment / Plan
Nonpurulent cellulitis of the RLE
Tinea Pedis
- blood cultures x2 in progress
- continue cefazolin 2 gm IV q8 hours
- compression/elevation as tolerated
- interdigital miconazole
[2025-01-15 15:00] VITALS: BP 115/73
[2025-01-15 23:26] VITALS: BP 119/64
[2025-01-16] MEDS: ANCEF 10 IV ×3 (04:43→20:23)
[2025-01-16 07:30] VITALS: BP 104/59
[2025-01-16 07:39] LABS: Hematocrit 41.9 % (39.0-52.0); Hemoglobin 14.7 g/dL (13.0-18.0); Mean Corp Hgb Conc. 35.1 g/dL (33.0-37.0); Mean Corpuscular Volume 85.2 fL (80.0-94.0); Nucleated Red Blood Cells % 0 % (-); Platelet Count 165 10^3/uL (130-400); Red Cell Dist. Width 14.3 % (11.5-14.5)
[2025-01-16 08:05] LABS: ALT (SGPT) 16 U/L (0-50); AST (SGOT) 19 U/L (17-59); Albumin 2.9 g/dl (3.5-5.0); Alkaline Phosphatase 94 U/L (38-126); Blood Urea Nitrogen 8 mg/dl (9-20); Calcium 9.3 mg/dl (8.4-10.2); Carbon Dioxide 21 mmol/L (22-30); Chloride 106 mmol/L (98-107); Estimated Creatinine Clearance 112 ml/min; Glucose 87 mg/dl (70-99); Potassium 4.1 mmol/L (3.5-5.1); Sodium 133 mmol/L (135-145); Total Protein 5.2 g/dl (6.3-8.2); eGFR > 60.00
[2025-01-16] MEDS: FLOMAX 0.4 MG PO ×2 (09:00→20:23)
[2025-01-16] MEDS: PROTONIX 40 MG PO (09:00)
[2025-01-16] MEDS: XARELTO 20 MG PO (09:01)
[2025-01-16] MEDS: DESENEX/MITRAZOL/ZEASORB 1 APPLIC TOPICAL ×2 (09:02→20:20)
--- NOTE | 2025-01-16 09:35 | W.PN.ID1 ---
Date of Service
Date of Service: January 16, 2025
Today's Communication
- continue cefazolin 2 gm IV q8 hours
- compression/elevation as tolerated - encouraged patient to elevate the extremity as much as possible
- interdigital miconazole x 4 weeks
Assessment / Plan
Nonpurulent cellulitis of the RLE
Tinea Pedis
Leukocytosis resolved
- overall with improvement of erythema, warmth of the RLE
- blood cultures x2 in progress
- continue cefazolin 2 gm IV q8 hours
- compression/elevation as tolerated - encouraged patient to elevate the extremity as much as possible
- interdigital miconazole x 4 weeks
Chief Complaint
-: Cellulitis
Subjective / Review of Systems
afebrile
bp stable
no events overnight
Vital Signs / Physical Exam
Vital Signs
Vital Signs
Temp Pulse Resp BP Pulse Ox
98.4 F 102 16 104/59 97
01/16/25 07:30 01/16/25 07:30 01/16/25 07:30 01/16/25 07:30 01/16/25 07:30
Physical Exam
Constitutional: No Acute Distress
Cardiovascular: Regular Rate and S1/S2; Negative Murmur or Rub
Pulmonary: Clear and Symmetric; Negative Wheezes or Rales
Gastrointestinal: Soft, Non Tender, Non Distended and Normal Bowel Sounds
Skin: Warm, Dry and Rash (less erythema and warmth of the RLE, still operator helper, compression in place, was not elevated on my arrival); Negative Jaundice
Objective Data
Lab Data
Lab Results
01/16/25 06:23
01/16/25 06:23
Estimated Creat Clear 112 ml/min 01/16/25 06:23
Lactic Acid 1.1 mmol/L (0.7-2.0) 01/14/25 14:44
Total Bilirubin 0.8 mg/dl (0.2-1.3) 01/16/25 06:23
AST 19 U/L (17-59) 01/16/25 06:23
ALT 16 U/L (0-50) 01/16/25 06:23
Alkaline Phosphatase 94 U/L (38-126) 01/16/25 06:23
Most recent labs reviewed.
Micro Results:
01/14/25 20:44 MRSA Screen - Final
Nose No Methicillin Resistant Staphylococcus aureus isolated.
01/14/25 21:51 Blood Culture - Preliminary
Blood/Venous No Growth in 24 hours- Final report to follow
01/14/25 21:11 Blood Culture - Preliminary
Blood/Venous No Growth in 24 hours- Final report to follow
01/14/25 14:44 Influenza Types A & B (KE) - Final
Nasal Swab Negative for Influenza A & B, NAAT
Negative results must be combined with clinical observations
and patient history.
Nucleic Acid Amplification test (NAAT)performed on the
[email or web address] platform.
[2025-01-16] MEDS: DRISDOL (VITAMIN D2) 50000 UNITS PO (12:26)
--- NOTE | 2025-01-16 12:29 | W.PN.HOSP.TC ---
Today's Communication/Plan
-
continue cefazolin.
Assessment / Plan
Assessment / Plan
Impression:
Mr. Coats is a 69-year-old male with a medical history of right lower extremity DVT due to factor V Leiden (on Xarelto), hyperlipidemia, and prostate enlargement who presented with painful redness and swelling in his right ankle spreading
proximally. This has been progressing over the past few days prior to arrival. He developed a fever at home and has been unable to bear weight on his right foot due to pain. He has been started on antibiotics and admitted for further evaluation
and management of cellulitis.
Assessment/plan
Sepsis secondary to right lower extremity cellulitis:
- Likely streptococcal considering streaking, no purulence or drainage
- Erythema marked at time of admission (01/14), appears to have expanded since admission with streaking up medial thigh to right groin which has now also been marked (01/15)
- Continuing antibiotics with Ancef for now, follow-up cultures
- Appreciate guidance from ID
- Pain control as needed
- Leukocytosis appears to be improving, very mild fever yesterday evening of 100.4 �F, will monitor
- No evidence of DVT on ultrasound
- Patient reports taking Lasix daily for right lower extremity swelling, holding for now
Hyperbilirubinemia:
- T. bili 2.1 on initial labs improved to 1.7 today
- Alk phos and transaminases within normal limits
- Will monitor
Factor V Leiden mutation:
- History of right lower extremity DVT
- Continue home Xarelto
- Right lower extremity Doppler this admission shows no evidence of DVT
DVT prophylaxis: Xarelto
CODE STATUS: Full code
Diet: Regular diet
Disposition: continue cefazolin.
Total time spent on today's encounter was 51 minutes which included time spent in counseling the patient/family regarding diagnosis and treatment plan as listed above, goals of care, and symptom management. Case was discussed with nursing staff,
specialists, and care coordinators/case management. All labs and imaging personally reviewed by me. Remainder the time spent in detailed review of previous records, lab data, imaging, and other medical provider documentation.
Anticipated Discharge: > 48 hours
Subjective/Interval History
-
Date of Service: January 16, 2025
Patient seen and examined at bedside, still with right leg psin, denies any chest pain, still with coughing, no abdominal pain, no nausea, no vomiting, no diarrhea or constipation.
Objective Data
-
Labs:
Laboratory Results
01/16/25
06:23
WBC 10.8
Hgb 14.7
Hct 41.9
Plt Count 165
Sodium 133 L
Potassium 4.1
Chloride 106
Carbon Dioxide 21 L
BUN 8 L
Creatinine 0.7
Glucose 87
Calcium 9.3
Total Bilirubin 0.8
AST 19
ALT 16
Alkaline Phosphatase 94
Vital Signs:
Vital Signs
Temp Pulse Resp BP Pulse Ox
98.4 F 102 16 104/59 97
01/16/25 07:30 01/16/25 07:30 01/16/25 07:30 01/16/25 07:30 01/16/25 07:30
I&O
01/15/25 01/16/25 01/17/25
06:59 06:59 06:59
Intake Total 1520 / 1520 480 / 480
Balance 1520 / 1520 480 / 480
Physical Exam
-
General: Well Developed, Well Nourished, No Apparent Distress and Comfortable
HEENT: Normocephalic, Atraumatic, Moist Mucous Membranes, No Ptosis, PERRLA and Nose Appears Normal
Respiratory: Rales and Non Labored Respirations
Cardiac: Regular Rhythm and S1/S2
Breast: Deferred by me
GI: Soft, Nontender, Nondistended and Normal Bowel Sounds
Genito-urinary: No Costovertebral Tender
Musculoskeletal: No Clubbing and Edema, Right Upper Extrem (wrapped)
Skin: Warm
Neuro: Awake, Alert, Oriented, AO x 3 and No Motor Deficits
Psych: Calm
Data Reviewed
-
Diagnostic Radiology: Image personally visualized and interpreted and Report Reviewed by me
CT Scan: Image personally visualized and interpreted and Report Reviewed by me
Ultrasound: Image personally visualized and interpreted and Report Reviewed by me
MRI: Image personally visualized and interpreted and Report Reviewed by me
Medical Tests (Nuc Med, Echo etc): Image personally visualized and interpreted and Report Reviewed by me
Labs: Labs Reviewed by me
Old Records: Reviewed
[2025-01-16] MEDS: TORADOL 15 MG IV (12:40)
[2025-01-16 15:24] VITALS: BP 106/65
[2025-01-16 23:43] VITALS: BP 127/82
[2025-01-17] MEDS: ANCEF 10 IV ×3 (05:05→19:48)
[2025-01-17 07:30] VITALS: BP 100/67
[2025-01-17] MEDS: DESENEX/MITRAZOL/ZEASORB 1 APPLIC TOPICAL ×2 (08:18→19:49)
[2025-01-17] MEDS: PROTONIX 40 MG PO (08:19)
[2025-01-17] MEDS: FLOMAX 0.4 MG PO ×2 (08:19→19:49)
[2025-01-17] MEDS: XARELTO 20 MG PO (08:19)
[2025-01-17] MEDS: ROBITUSSIN DM 10 ML PO ×2 (09:12→19:58)
--- NOTE | 2025-01-17 09:20 | W.PN.ID1 ---
Date of Service
Date of Service: January 17, 2025
Today's Communication
- continue cefazolin 2 gm IV q8 hours for today, tomorrow can switch to keflex 500 mg PO QID to finish a 10 day total course 01/15-01/28
- compression/elevation as tolerated
- interdigital miconazole x 4 weeks
Assessment / Plan
Nonpurulent cellulitis of the RLE
Tinea Pedis
Leukocytosis resolved
- overall with ongoing improvement of erythema, warmth of the RLE, some hemosiderin deposition noted
- blood cultures x2 no growth to date
- continue cefazolin 2 gm IV q8 hours for today, tomorrow can switch to keflex 500 mg PO QID to finish a 10 day total course 01/15-01/28
- compression/elevation as tolerated
- interdigital miconazole x 4 weeks
Chief Complaint
-: Cellulitis
Subjective / Review of Systems
no further fevers
bp stable
still with some tenderness in the leg with walking
Vital Signs / Physical Exam
Vital Signs
Vital Signs
Temp Pulse Resp BP Pulse Ox
97.8 F 86 16 100/67 98
01/17/25 07:30 01/17/25 07:30 01/17/25 07:30 01/17/25 07:30 01/17/25 07:30
Physical Exam
Constitutional: No Acute Distress
Cardiovascular: Regular Rate and S1/S2; Negative Murmur or Rub
Pulmonary: Clear and Symmetric; Negative Wheezes or Rales
Gastrointestinal: Soft, Non Tender, Non Distended and Normal Bowel Sounds
Skin: Warm, Dry and Rash (some hemosiderin deposition in the skin, less background erythema, lymphangitis much improved); Negative Jaundice
Objective Data
Lab Data
Estimated Creat Clear 112 ml/min 01/16/25 06:23
Lactic Acid 1.1 mmol/L (0.7-2.0) 01/14/25 14:44
Total Bilirubin 0.8 mg/dl (0.2-1.3) 01/16/25 06:23
AST 19 U/L (17-59) 01/16/25 06:23
ALT 16 U/L (0-50) 01/16/25 06:23
Alkaline Phosphatase 94 U/L (38-126) 01/16/25 06:23
Most recent labs reviewed.
Micro Results:
01/14/25 21:51 Blood Culture - Preliminary
Blood/Venous No Growth in 48 hours- Final report to follow
01/14/25 21:11 Blood Culture - Preliminary
Blood/Venous No Growth in 48 hours- Final report to follow
01/14/25 20:44 MRSA Screen - Final
Nose No Methicillin Resistant Staphylococcus aureus isolated.
01/14/25 14:44 Influenza Types A & B (KE) - Final
Nasal Swab Negative for Influenza A & B, NAAT
Negative results must be combined with clinical observations
and patient history.
Nucleic Acid Amplification test (NAAT)performed on the
[employer] platform.
[2025-01-17 09:29] LABS: Hematocrit 44.4 % (39.0-52.0); Hemoglobin 15.8 g/dL (13.0-18.0); Mean Corp Hgb Conc. 35.6 g/dL (33.0-37.0); Mean Corpuscular Volume 84.3 fL (80.0-94.0); Nucleated Red Blood Cells % 0 % (-); Platelet Count 184 10^3/uL (130-400); Red Cell Dist. Width 14.1 % (11.5-14.5)
[2025-01-17 10:32] LABS: Blood Urea Nitrogen 9 mg/dl (9-20); Calcium 9.6 mg/dl (8.4-10.2); Carbon Dioxide 24 mmol/L (22-30); Chloride 108 mmol/L (98-107); Estimated Creatinine Clearance 98 ml/min; Glucose 127 mg/dl (70-99); Potassium 4.1 mmol/L (3.5-5.1); Sodium 134 mmol/L (135-145); eGFR > 60.00
--- NOTE | 2025-01-17 12:19 | W.PN.HOSP.TC ---
Today's Communication/Plan
-
continue cefazolin.
Discharge tomorrow on Keflex
Assessment / Plan
Assessment / Plan
Impression:
Mr. Coats is a 69-year-old male with a medical history of right lower extremity DVT due to factor V Leiden (on Xarelto), hyperlipidemia, and prostate enlargement who presented with painful redness and swelling in his right ankle spreading
proximally. This has been progressing over the past few days prior to arrival. He developed a fever at home and has been unable to bear weight on his right foot due to pain. He has been started on antibiotics and admitted for further evaluation
and management of cellulitis.
Started on IV antibiotic, seen by infectious disease and started on cefazolin.
Infectious disease recommending Keflex 500 mg 4 times daily on discharge through January 28.
Assessment/plan
Sepsis secondary to right lower extremity cellulitis:
- Likely streptococcal considering streaking, no purulence or drainage
- Erythema marked at time of admission (01/14), appears to have expanded since admission with streaking up medial thigh to right groin which has now also been marked (01/15)
- Continuing antibiotics with Ancef for now, follow-up cultures
- Appreciate guidance from ID
- Pain control as needed
- Leukocytosis appears to be improving, very mild fever yesterday evening of 100.4 �F, will monitor
- No evidence of DVT on ultrasound
- Patient reports taking Lasix daily for right lower extremity swelling, holding for now
Infectious disease recommending Keflex 500 mg 4 times daily on discharge through January 28.
Hyperbilirubinemia:
- T. bili 2.1 on initial labs improved to 1.7 today
- Alk phos and transaminases within normal limits
- Will monitor
Factor V Leiden mutation:
- History of right lower extremity DVT
- Continue home Xarelto
- Right lower extremity Doppler this admission shows no evidence of DVT
DVT prophylaxis: Xarelto
CODE STATUS: Full code
Diet: Regular diet
Disposition: continue cefazolin.
Discharge tomorrow
Total time spent on today's encounter was 51 minutes which included time spent in counseling the patient/family regarding diagnosis and treatment plan as listed above, goals of care, and symptom management. Case was discussed with nursing staff,
specialists, and care coordinators/case management. All labs and imaging personally reviewed by me. Remainder the time spent in detailed review of previous records, lab data, imaging, and other medical provider documentation.
Anticipated Discharge: Within 24 hours
Subjective/Interval History
-
Date of Service: January 17, 2025
Patient seen and examined at bedside, denies any chest pain, patient still coughing, chest x-ray negative for pneumonia, no abdominal pain, no nausea, no vomiting, no diarrhea or constipation.
Right leg pain improved
Objective Data
-
Labs:
Laboratory Results
01/17/25
09:10
WBC 7.9
Hgb 15.8
Hct 44.4
Plt Count 184
Sodium 134 L
Potassium 4.1
Chloride 108 H
Carbon Dioxide 24
BUN 9
Creatinine 0.8
Glucose 127 H
Calcium 9.6
Vital Signs:
Vital Signs
Temp Pulse Resp BP Pulse Ox
97.8 F 86 16 100/67 98
01/17/25 07:30 01/17/25 07:30 01/17/25 07:30 01/17/25 07:30 01/17/25 07:30
I&O
01/16/25 01/17/25 01/18/25
06:59 06:59 06:59
Intake Total 480 / 480 480 / 480
Balance 480 / 480 480 / 480
Physical Exam
-
General: Well Developed, Well Nourished, No Apparent Distress and Comfortable
HEENT: Normocephalic, Atraumatic, Moist Mucous Membranes, No Ptosis, PERRLA and Nose Appears Normal
Respiratory: Rales and Non Labored Respirations
Cardiac: Regular Rhythm and S1/S2
Breast: Deferred by me
GI: Soft, Nontender, Nondistended and Normal Bowel Sounds
Genito-urinary: No Costovertebral Tender
Musculoskeletal: No Clubbing and Edema, Right Upper Extrem (wrapped)
Skin: Warm
Neuro: Awake, Alert, Oriented, AO x 3 and No Motor Deficits
Psych: Calm
[2025-01-17 15:30] VITALS: BP 123/71
--- NOTE | 2025-01-17 15:50 | CM ---
CM met with patient and his at bedside. Patient is for possible d/c on 01/18/25. He will be discharged on oral Keflex. Patient will be returning home with his . No needs identified. Patient's will provide transportation home. IMM given.
Plan: home with no needs, will provide transportation home.
[2025-01-17 20:51] LABS: Glucose - Point of Care 141 mg/dl (70-99)
[2025-01-17 23:27] VITALS: BP 121/86
[2025-01-18] MEDS: KEFLEX 500 MG PO ×2 (05:58→11:47)
[2025-01-18 07:20] VITALS: BP 124/75
[2025-01-18] MEDS: PROTONIX 40 MG PO (08:20)
[2025-01-18] MEDS: XARELTO 20 MG PO (08:20)
[2025-01-18] MEDS: FLOMAX 0.4 MG PO (08:20)
[2025-01-18] MEDS: DESENEX/MITRAZOL/ZEASORB 1 APPLIC TOPICAL (08:20)
[2025-01-18] MEDS: ROBITUSSIN DM 10 ML PO (08:31)
[2025-01-18 08:51] LABS: Hematocrit 43.1 % (39.0-52.0); Hemoglobin 14.6 g/dL (13.0-18.0); Mean Corp Hgb Conc. 33.9 g/dL (33.0-37.0); Mean Corpuscular Volume 85.0 fL (80.0-94.0); Nucleated Red Blood Cells % 0 % (-); Platelet Count 201 10^3/uL (130-400); Red Cell Dist. Width 14.0 % (11.5-14.5)
[2025-01-18 09:20] LABS: Blood Urea Nitrogen 7 mg/dl (9-20); Calcium 9.5 mg/dl (8.4-10.2); Carbon Dioxide 25 mmol/L (22-30); Chloride 107 mmol/L (98-107); Estimated Creatinine Clearance 98 ml/min; Glucose 95 mg/dl (70-99); Potassium 4.4 mmol/L (3.5-5.1); Sodium 136 mmol/L (135-145); eGFR > 60.00
--- NOTE | 2025-01-18 10:46 | W.PN.HOSP.TC ---
Today's Communication/Plan
-
Discharge home today
Assessment / Plan
Assessment / Plan
Impression:
Mr. Coats is a 69-year-old male with a medical history of right lower extremity DVT due to factor V Leiden (on Xarelto), hyperlipidemia, and prostate enlargement who presented with painful redness and swelling in his right ankle spreading
proximally. This has been progressing over the past few days prior to arrival. He developed a fever at home and has been unable to bear weight on his right foot due to pain. He has been started on antibiotics and admitted for further evaluation
and management of cellulitis.
Started on IV antibiotic, seen by infectious disease and started on cefazolin.
Infectious disease recommending Keflex 500 mg 4 times daily on discharge through January 28.
Assessment/plan
Sepsis secondary to right lower extremity cellulitis:
- Likely streptococcal considering streaking, no purulence or drainage
- Erythema marked at time of admission (01/14), appears to have expanded since admission with streaking up medial thigh to right groin which has now also been marked (01/15)
- Continuing antibiotics with Ancef for now, follow-up cultures
- Appreciate guidance from ID
- Pain control as needed
- Leukocytosis appears to be improving, very mild fever yesterday evening of 100.4 �F, will monitor
- No evidence of DVT on ultrasound
- Patient reports taking Lasix daily for right lower extremity swelling, holding for now
Infectious disease recommending Keflex 500 mg 4 times daily on discharge through January 28.
Coughing.
Possible acute bronchitis.
Chest x-ray negative for pneumonia.
Will be discharged on Tessalon
Hyperbilirubinemia:
- T. bili 2.1 on initial labs improved to 1.7 today
- Alk phos and transaminases within normal limits
- Will monitor
Factor V Leiden mutation:
- History of right lower extremity DVT
- Continue home Xarelto
- Right lower extremity Doppler this admission shows no evidence of DVT
DVT prophylaxis: Xarelto
CODE STATUS: Full code
Diet: Regular diet
Disposition: Discharge home today
Total time spent on today's encounter was 51 minutes which included time spent in counseling the patient/family regarding diagnosis and treatment plan as listed above, goals of care, and symptom management. Case was discussed with nursing staff,
specialists, and care coordinators/case management. All labs and imaging personally reviewed by me. Remainder the time spent in detailed review of previous records, lab data, imaging, and other medical provider documentation.
Anticipated Discharge: Today
Subjective/Interval History
-
Date of Service: January 18, 2025
Patient seen and examined at bedside, denies any chest pain or shortness of breath, but still coughing, no abdominal pain, no nausea, no vomiting, no diarrhea or constipation.
Objective Data
-
Labs:
Laboratory Results
01/18/25
07:01
WBC 7.6
Hgb 14.6
Hct 43.1
Plt Count 201
Sodium 136
Potassium 4.4
Chloride 107
Carbon Dioxide 25
BUN 7 L
Creatinine 0.8
Glucose 95
Calcium 9.5
Vital Signs:
Vital Signs
Temp Pulse Resp BP Pulse Ox
98.0 F 80 16 124/75 98
01/18/25 07:20 01/18/25 07:20 01/18/25 07:20 01/18/25 07:20 01/18/25 07:20
I&O
01/17/25 01/18/25 01/19/25
06:59 06:59 06:59
Intake Total 480 / 480 720 / 720
Balance 480 / 480 720 / 720
Physical Exam
-
General: Well Developed, Well Nourished, No Apparent Distress and Comfortable
HEENT: Normocephalic, Atraumatic, Moist Mucous Membranes, No Ptosis, PERRLA and Nose Appears Normal
Respiratory: Rales and Non Labored Respirations
Cardiac: Regular Rhythm and S1/S2
Breast: Deferred by me
GI: Soft, Nontender, Nondistended and Normal Bowel Sounds
Genito-urinary: No Costovertebral Tender
Musculoskeletal: No Clubbing and Edema, Right Upper Extrem (wrapped)
Skin: Warm
Neuro: Awake, Alert, Oriented, AO x 3 and No Motor Deficits
Psych: Calm
--- NOTE | 2025-01-18 11:04 | W.DCSUMMARY ---
Discharge Summary
Discharge Data
Date of Admission: 01/14/25
Date of Discharge: 01/18/25
Total time spent discharging patient (in min): 40
-
Pending Results: No
Hospital Course
Hospital course
Mr. Coats is a 69-year-old male with a medical history of right lower extremity DVT due to factor V Leiden (on Xarelto), hyperlipidemia, and prostate enlargement who presented with painful redness and swelling in his right ankle spreading
proximally. This has been progressing over the past few days prior to arrival. He developed a fever at home and has been unable to bear weight on his right foot due to pain. He has been started on antibiotics and admitted for further evaluation
and management of cellulitis.
Started on IV antibiotic, seen by infectious disease and started on cefazolin.
Infectious disease recommending Keflex 500 mg 4 times daily on discharge through January 28.
During hospitalization patient was treated from the following
Sepsis secondary to right lower extremity cellulitis:
- Likely streptococcal considering streaking, no purulence or drainage
- Erythema marked at time of admission (01/14), appears to have expanded since admission with streaking up medial thigh to right groin which has now also been marked (01/15)
- Continuing antibiotics with Ancef for now, follow-up cultures
- Appreciate guidance from ID
- Pain control as needed
- Leukocytosis appears to be improving, very mild fever yesterday evening of 100.4 �F, will monitor
- No evidence of DVT on ultrasound
- Patient reports taking Lasix daily for right lower extremity swelling, holding for now
Infectious disease recommending Keflex 500 mg 4 times daily on discharge through January 28.
Coughing.
Possible acute bronchitis.
Chest x-ray negative for pneumonia.
Will be discharged on Tessalon
Hyperbilirubinemia:
- T. bili 2.1 on initial labs improved to 1.7 today
- Alk phos and transaminases within normal limits
- Will monitor
Factor V Leiden mutation:
- History of right lower extremity DVT
- Continue home Xarelto
- Right lower extremity Doppler this admission shows no evidence of DVT
DVT prophylaxis: Xarelto
CODE STATUS: Full code
Diet: Regular diet
Disposition: Discharge home today
Total time spent on today's encounter was 40 minutes which included time spent in counseling the patient/family regarding diagnosis and treatment plan as listed above, goals of care, and symptom management. Case was discussed with nursing staff,
specialists, and care coordinators/case management. All labs and imaging personally reviewed by me. Remainder the time spent in detailed review of previous records, lab data, imaging, and other medical provider documentation.
Anticipated Discharge: Today
Discharge Plan
-
Patient Disposition: Home (Routine Discharge)
Discharge Diagnosis/Procedures: Sepsis secondary to right lower extremity cellulitis.
Hyperbilirubinemia.
Factor V Leiden mutation
Diet: Low Cholesterol
Activity: As tolerated
Referrals:
Kai Waldron MD [Family Provider, Internal Medicine]
Prescriptions:
New
miconazole nitrate [Miconazorb AF] 2 % Powder
1 applic topical BID Qty: 85 3RF
Rx Instructions:
interdigital miconazole x 4 weeks
cephalexin 500 mg Capsule
500 mg PO Q6H 10 Days Qty: 40 0RF
benzonatate 100 mg capsule
100 mg PO QID PRN (Reason: Cough) Qty: 20 0RF
Continued
furosemide [Lasix] 40 mg Tablet
40 mg PO DAILY
acetaminophen [Tylenol] 325 mg Tablet
650 mg PO Q6HPRN PRN (Reason: mild pain)
tamsulosin 0.4 mg Capsule
0.4 mg PO BID
ergocalciferol (vitamin D2) 1,250 mcg (50,000 unit) Capsule
1,250 mcg PO MO
omeprazole 20 mg Tablet,Delayed Release (Dr/Ec)
20 mg PO DAILY
Xarelto 20 mg Tablet
20 mg PO DAILY
Repatha Syringe 140 mg/mL Syringe
140 mg SC Q2W
Discharge Orders:
Discharge Patient (As Directed); Ordered 01/18/25
Ordered By: Olya Crooks
Discharge Date and Time
Print Language: PANAMANIAN
[2025-01-18 11:59] VITALS: BP 121/80
--- NOTE | 2025-01-18 12:55 | W.PN.ID1 ---
Date of Service
Date of Service: January 18, 2025
Today's Communication
- switch to keflex 500 mg PO QID to finish a 10 day total course 01/15-01/28
- compression/elevation as tolerated - compression socks at home
- interdigital miconazole x 4 weeks
- follow up with PCP
Assessment / Plan
Nonpurulent cellulitis of the RLE
Tinea Pedis
Leukocytosis resolved
- overall with ongoing improvement of erythema, warmth of the RLE, some hemosiderin deposition noted
- blood cultures x2 no growth to date
- switch to keflex 500 mg PO QID to finish a 10 day total course 01/15-01/28
- compression/elevation as tolerated - compression socks at home
- interdigital miconazole x 4 weeks
- follow up with PCP
Chief Complaint
-: Cellulitis
Subjective / Review of Systems
afebrile
bp stable
still with some pain with ambulation
Vital Signs / Physical Exam
Vital Signs
Vital Signs
Temp Pulse Resp BP Pulse Ox
97.9 F 82 16 121/80 98
01/18/25 11:59 01/18/25 11:59 01/18/25 11:59 01/18/25 11:59 01/18/25 11:59
Physical Exam
Constitutional: No Acute Distress
Cardiovascular: Regular Rate and S1/S2; Negative Murmur or Rub
Pulmonary: Clear and Symmetric; Negative Wheezes or Rales
Gastrointestinal: Soft, Non Tender, Non Distended and Normal Bowel Sounds
Skin: Warm, Dry and Rash (mild residual erythema of the distal right leg, hemosiderin deposition noted; edeam 1+); Negative Jaundice
Objective Data
Lab Data
Lab Results
01/18/25 07:01
01/18/25 07:01
Estimated Creat Clear 98 ml/min 01/18/25 07:01
Lactic Acid 1.1 mmol/L (0.7-2.0) 01/14/25 14:44
Total Bilirubin 0.8 mg/dl (0.2-1.3) 01/16/25 06:23
AST 19 U/L (17-59) 01/16/25 06:23
ALT 16 U/L (0-50) 01/16/25 06:23
Alkaline Phosphatase 94 U/L (38-126) 01/16/25 06:23
Most recent labs reviewed.
Micro Results:
01/14/25 21:51 Blood Culture - Preliminary
Blood/Venous No Growth in 72 hours- Final report to follow
01/14/25 21:11 Blood Culture - Preliminary
Blood/Venous No Growth in 72 hours- Final report to follow
01/14/25 20:44 MRSA Screen - Final
Nose No Methicillin Resistant Staphylococcus aureus isolated.
01/14/25 14:44 Influenza Types A & B ([facility]) - Final
Nasal Swab Negative for Influenza A & B, NAAT
Negative results must be combined with clinical observations
and patient history.
Nucleic Acid Amplification test (NAAT)performed on the
[employer] platform.
== END 2025-01-18 13:08 | disposition home or self-care (01) | DRG 872 ==
LOC: 4 WEST ACU 20:02
PROVIDERS: Internal Medicine; Physician Assistant Medical; ADMITTING PHYSICIAN Internal Medicine; ATTENDING PHYSICIAN General Practice; CONSULT PHYSICIAN Student in an Organized Health Care Education/Training Program; EMERGENCY PHYSICIAN Student in an Organized Health Care Education/Training Program; FAMILY PHYSICIAN Internal Medicine
DX: A41.9 Sepsis, unspecified organism (principal); L03.115 Cellulitis of right lower limb; D68.51 Activated protein C resistance; Z11.52 Encounter for screening for COVID-19; N40.0 Benign prostatic hyperplasia without lower urinary tract symptoms; Z79.01 Long term (current) use of anticoagulants; E80.6 Other disorders of bilirubin metabolism; R65.20 Severe sepsis without septic shock; J20.9 Acute bronchitis, unspecified
CPT/HCPCS: 71046; 80048; 80053; 81003; 81015; 82962; 83605; 85025; 85027; 87040; 87070; 87502; 87811; 93971; 94640; 96361; 96374; 99285